=== PATIENT | female | born 1950 | race African-American/Black ===

== ENCOUNTER 2018-07-25 16:20 | Emergency (ER) | payer OTHER, MEDICAID ==
[2018-07-25] MEDS ORDERED: traMADol 50 MG TAB PO (17:30)
[2018-07-25] MEDS: CYCLOBENZAPRINE 10 MG TAB PO (18:14)
[2018-07-25] MEDS: KETOROLAC 30 MG INJ IM (18:15)
[2018-07-25] MEDS: traMADol 50 MG TAB PO (19:00)
== END 2018-07-25 20:27 | disposition home or self-care (01) ==
LOC: FTE 16:20
DX: M54.5 Low back pain (principal); M25.552 Pain in left hip; M79.10 Myalgia, unspecified site
CPT/HCPCS: 72100; 73510; 96372; 99284-25